=== PATIENT | male | born 1965 | race Caucasian/White ===

== ENCOUNTER 2020-04-24 20:20 | Emergency (ER) | payer SELFPAY ==
[2020-04-24] MEDS ORDERED: Silver Sulfadiazine 50 GM TUBE ONE (21:28)
[2020-04-24] MEDS ORDERED: Boostrix 0.5 ML (Tdap) VIAL ONE (21:28)
[2020-04-24] MEDS ORDERED: Morphine 4 MG/ML VIAL ONE (21:28)
== END 2020-04-24 22:27 | disposition home or self-care (01) ==
LOC: ERS 20:20
DX: T23.65 Corrosion of second degree of palm (principal); T23.651A Corrosion of second degree of right palm, initial encounter
CPT/HCPCS: 90471; 90715; 96372; J2270

== ENCOUNTER 2022-02-28 08:19 | Outpatient (CLI) | payer BC ==
[2022-02-28 09:28] LABS: #Basophils 0.1 10x3/uL (0.0-0.2); #Eosinphils 0.3 10x3/uL (0.0-0.5); #Monocytes 0.5 10x3/uL (0.0-1.1); #Neutrophils 4.5 10x3/uL (1.5-8.4); %Basophils 1.1 % (0.0-2.0); %Eosinophils 3.3 % (0.0-6.0); %Lymphocytes 29.5 % (18.0-47.0); %Monocytes 6.4 % (0.0-10.0); %Neutrophils 59.2 % (40.0-75.0); Hemoglobin 15.5 g/dL (13.5-17.5); Mean Corpuscular HGB CONC 33.8 g/dL (32.0-36.0); Mean Corpuscular Hemoglobin 28.7 pg (27.0-33.0); Mean Platelet Volume 11.6 fl (7.4-10.4); Platelet Count 237 10x3/uL (150-450); RBC Distribution Width 12.5 % (11.5-14.5); White Blood Cell (WBC) Count 7.6 10x3/uL (3.5-10.5)
[2022-02-28 10:04] LABS: Anion Gap 13 mmol/L (10-20); BUN (Urea Nitrogen) 17 mg/dL (8.4-25.7); Calc. Creatinine Clearance 0 mL/min (70-130); Calcium 9.7 mg/dL (7.8-10.44); Carbon Dioxide 27 mmol/L (22-29); Chloride 106 mmol/L (98-107); Estimated GFR 102; Glucose 82 mg/dL (70-105); Potassium 4.7 mmol/L (3.5-5.1); Sodium 141 mmol/L (136-145)
== END 2022-02-28 08:20 | disposition home or self-care (01) ==
LOC: LABBT 08:19
PROVIDERS: ATTEND Surgery
DX: Z01.812 Encounter for preprocedural laboratory examination (principal); Z20.822 Contact with and (suspected) exposure to COVID-19
CPT/HCPCS: 80048; 85025; 87811

== ENCOUNTER 2022-03-05 10:07 | Day surgery (SDC) | payer BC ==
[2022-03-03 14:51] VITALS: BMI 25.8
[2022-03-05] MEDS ORDERED: EPINEPHrine 1 MG/ML AMP ONE (13:20)
[2022-03-05] MEDS ORDERED: Bupivacaine 0.25% HCL 30 ML VIAL ONE (13:20)
[2022-03-05] MEDS ORDERED: fentaNYL Citrate/PF 100 MCG/2 ML SYRINGE ONE (13:24)
[2022-03-05] MEDS ORDERED: CEFAZOLIN 2 GM VIAL ONE (13:25)
[2022-03-05] MEDS ORDERED: Sodium Chloride 0.9% 100 ML ONE (13:25)
[2022-03-05] MEDS ORDERED: ePHEDrine 50 MG/ML VIAL ONE (13:35)
[2022-03-05] MEDS ORDERED: Ketorolac Tromethamine 30 MG/ML VIAL ONE (13:35)
[2022-03-05] MEDS ORDERED: Ondansetron PF 4 MG/2 ML Vial ONE (13:35)
[2022-03-05] MEDS ORDERED: Glycopyrrolate 0.2 MG/ML 5 ML SYRINGE ONE (13:35)
[2022-03-05] MEDS ORDERED: PROPOFOL 200 MG/20 ML VIAL ONE (13:35)
== END 2022-03-05 15:18 | disposition home or self-care (01) ==
LOC: SDC 10:07
PROVIDERS: ATTEND Surgery
PROC: 0WUF0JZ Supplement Abdominal Wall with Synthetic Substitute, Open Approach (ICD-10-PCS; principal; 2022-03-05)
DX: K42.9 Umbilical hernia without obstruction or gangrene (principal)
CPT/HCPCS: C1889; J0171; J0690; J1885; J2405; J2704; J3490; S0020

== ENCOUNTER 2023-01-21 08:51 | Outpatient (CLI) | payer BC | END 2023-01-21 08:52 | disposition home or self-care (01) | LOC: SCSRAD 08:51 | PROVIDERS: ATTEND Nurse Practitioner Family | DX: M25.512 Pain in left shoulder (principal) ==